=== PATIENT | male | born 1940 | race Caucasian/White ===

== ENCOUNTER 2024-01-11 10:31 | Outpatient (CLI) | payer BC, MEDICARE, OTHER ==
[~2024-01-11 10:31] MED LIST: AMI200T PO; FURO40TA4 PO; GABA-530 PO; GABA300T28 PO; LANS30CA56 PO; LEVO137C4 PO; LEVO137T2 PO; PRAV80TA3 PO; SPIR25TA5 PO
== END 2024-01-11 23:59 | disposition home or self-care (01) ==
LOC: CARD DIAG 10:31
PROVIDERS: ATTEND Internal Medicine Cardiovascular Disease
DX: I08.0 Rheumatic disorders of both mitral and aortic valves (principal); R06.02 Shortness of breath; I65.29 Occlusion and stenosis of unspecified carotid artery
CPT/HCPCS: 93308

== ENCOUNTER 2024-01-21 10:31 | Inpatient (IN) | payer BC, MEDICARE, OTHER ==
[2024-01-19 13:28] LABS: BILIRUBIN,URINE SMALL (Neg); CLARITY,URINE CLOUDY (Clear); COLOR,URINE YELLOW (Yellow); GLUCOSE, URINE NEGATIVE (Neg); KETONES,URINE NEGATIVE (Neg); LEUKOCYTE ESTERASE ,URINE MODERATE (Neg); NITRITES, URINE POSITIVE (Neg); OCCULT BLOOD,URINE TRACE-INTACT (Neg); PROTEIN,URINE NEGATIVE (Neg)
[2024-01-19 13:30] LABS: BASOPHILS % (AUTO) 0.4 % (0-1); EOSINOPHILS # (AUTO) 0.1 X10'3 (0-0.9); EOSINOPHILS % (AUTO) 0.7 % (0-6); LYMPHOCYTES # (AUTO) 1.5 X10'3 (1.1-4.8); LYMPHOCYTES % (AUTO) 20.3 % (21-51); MEAN CORPUSCULAR HEMOGLOBIN 27.4 PG (27.0-31.0); MEAN CORPUSCULAR HGB CONC 31.5 g/dL (33.0-36.5); MEAN CORPUSCULAR VOLUME 87.1 FL (78-98); MEAN PLATELET VOLUME 8.6 FL (7.4-10.4); MONOCYTES # (AUTO) 0.5 X10'3 (0-0.9); MONOCYTES % (AUTO) 7.2 % (2-12); NEUTROPHILS # (AUTO) 5.4 X10'3 (1.8-7.7); NEUTROPHILS % (AUTO) 71.4 % (42-75); PRE OP HEMATOCRIT 35.7 % (42.0-52.0); PRE OP HEMOGLOBIN 11.2 g/dL (14.0-17.9); PRE OP PLATELET COUNT 259 X10'3 (140-440); PRE OP WHITE BLOOD COUNT 7.5 10'3 (4.8-10.8); RED CELL DISTRIBUTION WIDTH 16.9 % (11.5-14.5)
[2024-01-19 13:34] LABS: UA COLLECTION TYPE NON-SPECIFIED
[2024-01-19 13:45] LABS: BACTERIA,URINE 2+ /HPF (Neg); SQUAMOUS EPITHELIAL CELL,UR FEW /LPF (FEW); WBC,URINE TNTC /HPF (0-4)
[2024-01-19 13:45] LABS: PRE OP INR 1.1 INR; PRE OP PROTIME 11.4 SECONDS (9.0-12.0)
[2024-01-19 13:47] LABS: RBC,URINE 0-2 /HPF (0-2)
[2024-01-19 13:49] LABS: WBC CLUMPS,URINE MODERATE /HPF (NEGATIVE)
[2024-01-19 13:54] LABS: ALBUMIN 3.1 G/DL (3.4-5.0); ALKALINE PHOSPHATASE 51 IU/L (46-116); BLOOD UREA NITROGEN 34 MG/DL (7-18); BUN/CREATININE RATIO 19.3 (10.0-20.0); CALCIUM 9.1 MG/DL (8.5-10.1); CHLORIDE 94 MMOL/L (99-107); CREATININE 1.76 MG/DL (0.60-1.10); PRE OP ALT 19 U/L (30-65); PRE OP ANION GAP 4 (8-16); PRE OP POTASSIUM 3.5 MMOL/L (3.4-5.1); PRE OP SODIUM 136 MMOL/L (135-145); PRO BRAIN NATRIURETIC PEPTIDE 10989 PG/ML (0-450); THYROID STIMULATING HORMONE 2.79 ulU/ml (0.34-4.50); TOTAL CARBON DIOXIDE 38.2 MMOL/L (24-32); eGFR 37 ML/MIN
[2024-01-19 13:54] LABS: CAL OXALATE CRYSTALS FEW /HPF (NEGATIVE); TRANSITIONAL EPI CELLS,URINE MODERATE /HPF
[2024-01-19 14:09] LABS: ALBUMIN/GLOBULIN RATIO 0.7 (1.1-1.5); PRE OP AST 16 U/L (10-37); PRE OP BILIRUB, TOTAL 1.4 MG/DL (0.0-1.0); PRE OP GLUCOSE 118 MG/DL (70-104); TOTAL PROTEIN 7.4 G/DL (6.4-8.2)
[~2024-01-21] VITALS: Ht 177.8 cm; Wt 110.8 kg
[2024-01-21] VITALS (21 sets, daily range): BP systolic 95–125; BP diastolic 56–78; PULSE 84–111; RESP 14–25; TEMP 97–97.9; O2SAT 86–99
[2024-01-21] MEDS: cefazolin 2gm/D5W 100mL 100 ML IV ONE (05:30)
[~2024-01-21 10:31] MED LIST changes: -AMI200T PO; +DOBUTamine-DoBUTrex 500mg/D5W 250 ML IV PRN; -LEVO137T2 PO; +NORepinephrine 8mg/ 250ml NS 250 ML IV PRN; -SPIR25TA5 PO; +nitroPRUSSIDE (NIPRIDE) (200MCG/ML) 100ML Drip IV SCH; +ondansetron/PF 4mg/2ml inj IV PRN; +phenylephrine inj 50 MG in normal saline 250ml IV solN IV SCH
[2024-01-21] MEDS ORDERED: FURO-149 PO (12:01)
[2024-01-21] MEDS ORDERED: ASPI-1265 PO (12:01)
[2024-01-21] MEDS ORDERED: LEVO137C4 PO (12:01)
[2024-01-21] MEDS ORDERED: PRAV80TA3 PO (12:01)
[2024-01-21] MEDS ORDERED: AMIO200T27 PO (12:01)
[2024-01-21] MEDS ORDERED: GABA300C PO (12:01)
[2024-01-21] MEDS: aspirin 325mg tablet PO ONE (12:24)
[2024-01-21] MEDS: famotidine 20mg tablet PO ONE (12:24)
[2024-01-21] MEDS: vancomycin 1,500 MG in NS 300ml IV soln IV ONE (12:24)
[2024-01-21] MEDS: ringers solution, lacted 1,000 ML IV SCH ×2 (12:25→12:55)
[2024-01-21] MEDS ORDERED: proCHLORperazine 10 MG/2 ml inj IV PRN ×2 (12:55→14:50)
[2024-01-21] MEDS ORDERED: meperidine/PF 25mg/ml syringe IV PRN ×2 (12:55)
[2024-01-21] MEDS ORDERED: hydrALAZINE 20mg/ml inj. IV PRN (12:55)
[2024-01-21] MEDS ORDERED: ondansetron/PF 4mg/2ml inj IV PRN ×2 (12:55→14:50)
[2024-01-21] MEDS ORDERED: morphine 4 MG/ML inj SYRINge IV PRN (12:55)
[2024-01-21] MEDS ORDERED: morphine 2 MG/ML inj. syringe IV PRN (12:55)
[2024-01-21] MEDS: acetaminophen 1,000mg/100ml IV 100 ML IV ONE (12:55)
[2024-01-21] MEDS ORDERED: labetalol 20mg/4ml (5mg/ml) syringe IV PRN (12:55)
[2024-01-21] MEDS ORDERED: LIDOcaine 1% (10mg/ml) 2ml vial ONE (13:02)
[2024-01-21] MEDS ORDERED: LIDOcaine 1% 30ml preserv. free vial ONE (13:16)
[2024-01-21] MEDS ORDERED: iohexol 350MG/ML 100ml bottle IV ONE (13:17)
[2024-01-21] MEDS ORDERED: heparin 1,000 UNITS/NS 500ml 1,500 ML ONE (13:17)
[2024-01-21] MEDS ORDERED: heparin 1,000 UNITS/NS 500ml 500 ML ONE (13:19)
[2024-01-21] MEDS ORDERED: LIDOcaine 1%/PF 5ML 10 MG/ML VIAL ONE (13:28)
[2024-01-21] MEDS ORDERED: midazolam 1 mg/ML 2ml injection ONE (13:32)
[2024-01-21] MEDS ORDERED: fentaNYL/PF 50MCG/1 ML 2ML syringe ONE (13:32)
[2024-01-21] MEDS ORDERED: heparin 1,000unit/ml 10ml vial 10 ML ONE ×2 (13:58→14:23)
[2024-01-21] MEDS: protamine sulfate 10mg/ml inj. ONE (14:04)
[2024-01-21] MEDS ORDERED: propofol inj 20 ML IV ONE ×3 (14:15→14:21)
[2024-01-21] MEDS ORDERED: dextrose 5% water 500ml 500 ML ONE (14:19)
[2024-01-21] MEDS ORDERED: docusate sod 100mg capsule PO PRN (14:50)
[2024-01-21] MEDS ORDERED: magnesium 4gm in 100ml NS 100 ML IV PRN (14:50)
[2024-01-21] MEDS ORDERED: potassium Cl 20 mEq SR tablet PO PRN (14:50)
[2024-01-21] MEDS ORDERED: potassium CL 10mEq/100ml bag 100 ML IV PRN (14:50)
[2024-01-21] MEDS ORDERED: diphenhydrAMINE 25mg capsule PO PRN (14:50)
[2024-01-21] MEDS ORDERED: potassium Cl 40MEQ/1/2NS 520ml 520 ML IV PRN (14:50)
[2024-01-21] MEDS ORDERED: potassium Cl 20mEq/100mL bag 100 ML IV PRN (14:50)
[2024-01-21] MEDS ORDERED: HYDROcodone/acetaminophen 5mg/325mg tablet PO PRN (14:50)
[2024-01-21] MEDS ORDERED: magnesium 2GM in 50ml NS 50 ML IV PRN (14:50)
[2024-01-21] MEDS ORDERED: potassium Cl 40MEQ/270ML bag 250 ML IV PRN (14:50)
[2024-01-21] MEDS ORDERED: pantoprazole 40mg Tablet.DR PO PRN (14:50)
[2024-01-21] MEDS ORDERED: acetaminophen 325mg tablet PO PRN (14:50)
[2024-01-21] MEDS: ceFAZolin 1GM/D5W- ADD-VANTAGE 50 ML IV SCH (16:00)
[2024-01-21] MEDS: gabapentin 100mg capsule PO SCH (16:00)
[2024-01-21] MEDS: sod chloride 0.9% 10ml flush syringe IV SCH (16:53)
[2024-01-21] MEDS: gabapentin 300mg capsule PO SCH (20:48)
[2024-01-21] MEDS: furosemide 40mg tablet PO SCH (20:48)
[2024-01-21] MEDS: vancomycin/NS 1 GM ADD-VANTAGE 250 ML IV SCH (20:49)
[2024-01-22 02:00] VITALS: BP 100/65; PULSE 88; RESP 22; O2SAT 93
[2024-01-22 02:30] VITALS: BP 103/63; PULSE 87; RESP 20; O2SAT 95
[2024-01-22 06:00] VITALS: BP 110/60; PULSE 86; RESP 17; TEMP 98.2; O2SAT 95
[2024-01-22 06:55] LABS: BASOPHILS % (AUTO) 0.4 % (0-1); EOSINOPHILS % (AUTO) 0.5 % (0-6); HEMATOCRIT 32.4 % (42.0-52.0); HEMOGLOBIN 10.4 g/dl (14.0-17.9); LYMPHOCYTES # (AUTO) 1.3 X10'3 (1.1-4.8); LYMPHOCYTES % (AUTO) 17.4 % (21-51); MEAN CORPUSCULAR HEMOGLOBIN 27.8 PG (27.0-31.0); MEAN CORPUSCULAR HGB CONC 32.1 g/dL (33.0-36.5); MEAN CORPUSCULAR VOLUME 86.6 FL (78-98); MEAN PLATELET VOLUME 8.1 FL (7.4-10.4); MONOCYTES # (AUTO) 0.6 X10'3 (0-0.9); MONOCYTES % (AUTO) 8.5 % (2-12); NEUTROPHILS # (AUTO) 5.4 X10'3 (1.8-7.7); NEUTROPHILS % (AUTO) 73.2 % (42-75); PLATELET COUNT 214 X10'3 (140-440); RED BLOOD COUNT 3.75 X10'6 (4.70-6.10); RED CELL DISTRIBUTION WIDTH 17.2 % (11.5-14.5); WHITE BLOOD COUNT 7.4 X10'3 (4.5-11.0)
[2024-01-22 07:32] LABS: ALANINE AMINOTRANSFERASE 17 U/L (12-78); ALBUMIN 2.5 G/DL (3.4-5.0); ALKALINE PHOSPHATASE 39 IU/L (46-116); ANION GAP 3 (8-16); BLOOD UREA NITROGEN 23 MG/DL (7-18); CHLORIDE 101 MMOL/L (99-107); CREATININE 1.35 MG/DL (0.60-1.10); MAGNESIUM 1.7 MG/DL (1.5-2.4); POTASSIUM 3.1 MMOL/L (3.5-5.1); PRO BRAIN NATRIURETIC PEPTIDE 10087 PG/ML (0-450); SODIUM 143 MMOL/L (135-145); TOTAL CARBON DIOXIDE 39.1 MMOL/L (24-32); eCRCL 41 ML/MIN; eGFR 50 ML/MIN
[2024-01-22 07:36] LABS: ALBUMIN/GLOBULIN RATIO 0.7 (1.1-1.5); ASPARTATE AMINO TRANSFERASE 21 U/L (10-37); BILIRUBIN,TOTAL 0.8 MG/DL (0.1-1.0); CALCIUM 8.4 MG/DL (8.5-10.1); GLUCOSE 103 MG/DL (70-104); TOTAL PROTEIN 6.2 G/DL (6.4-8.2)
[2024-01-22] MEDS: levoTHYROXINE 112mcg tablet PO SCH (07:45)
[2024-01-22] MEDS: amiodarone 200mg tablet PO SCH (07:45)
[2024-01-22] MEDS: aspirin 81mg tab.chew PO SCH (07:45)
[2024-01-22] MEDS: atorvastatin 20mg tablet PO SCH (07:46)
[2024-01-22] MEDS: pantoprazole 40mg Tablet.DR PO SCH (07:46)
[2024-01-22] MEDS: levoTHYROXINE 25mcg tablet PO SCH (07:46)
[2024-01-22] MEDS ORDERED: aspirin 81mg tab.chew PO SCH (08:00)
[2024-01-22 11:00] VITALS: BP 104/60; PULSE 88; RESP 19; TEMP 97.7; O2SAT 94
== END 2024-01-22 13:18 | disposition home or self-care (01) | DRG 266 ==
LOC: PAS IN 10:31 → PCU 3S 16:18
PROVIDERS: ADMIT Internal Medicine Cardiovascular Disease; ATTEND Internal Medicine Cardiovascular Disease
PROC: 5A2204Z Restoration of Cardiac Rhythm, Single (ICD-10-PCS; 2024-01-21)
PROC: B41F1ZZ Fluoroscopy of Right Lower Extremity Arteries using Low Osmolar Contrast (ICD-10-PCS; 2024-01-21)
PROC: B41G1ZZ Fluoroscopy of Left Lower Extremity Arteries using Low Osmolar Contrast (ICD-10-PCS; 2024-01-21)
PROC: 03HY32Z Insertion of Monitoring Device into Upper Artery, Percutaneous Approach (ICD-10-PCS; 2024-01-21)
PROC: B3101ZZ Fluoroscopy of Thoracic Aorta using Low Osmolar Contrast (ICD-10-PCS; 2024-01-21)
PROC: B44HZZZ Ultrasonography of Bilateral Lower Extremity Arteries (ICD-10-PCS; 2024-01-21)
PROC: 02RF38N Replacement of Aortic Valve with Zooplastic Tissue, using Rapid Deployment Technique, Percutaneous Approach (ICD-10-PCS; principal; 2024-01-21 13:28)
DX: I35.0 Nonrheumatic aortic (valve) stenosis (principal); I50.23 Acute on chronic systolic (congestive) heart failure; I47.20 Ventricular tachycardia, unspecified; E78.5 Hyperlipidemia, unspecified; I11.0 Hypertensive heart disease with heart failure
CPT/HCPCS: 33361; 36415; 71045; 71046; 76937; 80053; 81001; 82948; 83735; 83880; 84443; 85025; 85347; 85610; 85730; 86885; 86900; 86901; 86920; 87081; 87088; 92960; 93005; 93308; A4618; A6258; A6449; C1756; C1758; C1760; C1769; C1894; G0378; J0690; J1250; J1644; J2250; J2371; J2704; J2720; J3010; J3370; J3490; J7040; J7050; J7060; J7120; Q9967